=== PATIENT | female | born 1945 | race Two or more races ===

== ENCOUNTER 2017-09-21 11:30 | Outpatient (CLI) | payer OTHER ==
[~2017-09-21 11:30] MED LIST: COZAAR100 MG; DIOVAN HCT 320/1 TAB; GLIPIZIDE10 MG; HYDROCODONE-APA1 CAP; METFORMIN HCL1000 MG; METFORMIN HCL500 MG; METOPROLOL TART25 MG
== END 2017-09-21 11:39 | disposition home or self-care (01) ==
LOC: LAB 11:30
DX: D64.0 Hereditary sideroblastic anemia (principal)

== ENCOUNTER 2017-09-21 14:03 | Outpatient (CLI) | payer OTHER | END 2017-09-21 14:23 | disposition home or self-care (01) | LOC: TOM 14:03 | DX: I10 Essential (primary) hypertension (principal); J44.9 Chronic obstructive pulmonary disease, unspecified; R07.89 Other chest pain ==

== ENCOUNTER 2018-02-13 11:28 | Inpatient (IN) | payer OTHER ==
[~2018-02-13] VITALS: Ht 12.7 cm; Wt 74.8 kg
== END 2018-02-16 20:26 | disposition home or self-care (01) | DRG 379 ==
LOC: MEDJ 11:28
PROC: 30233N1 Transfusion of Nonautologous Red Blood Cells into Peripheral Vein, Percutaneous Approach (ICD-10-PCS; principal; 2018-02-14)
DX: K92.2 Gastrointestinal hemorrhage, unspecified (principal); D50.0 Iron deficiency anemia secondary to blood loss (chronic); I10 Essential (primary) hypertension; E11.9 Type 2 diabetes mellitus without complications

== ENCOUNTER 2018-09-22 11:09 | Outpatient (CLI) | payer OTHER | END 2018-09-22 11:29 | disposition home or self-care (01) | LOC: RAD 11:09 | DX: J44.9 Chronic obstructive pulmonary disease, unspecified (principal) ==

== ENCOUNTER 2019-02-01 06:45 | Day surgery (SDC) | payer OTHER | END 2019-02-01 12:40 | disposition home or self-care (01) | LOC: CIR.AMB 06:45 | DX: L72.0 Epidermal cyst (principal) ==

== ENCOUNTER → 2020-09-08 | Outpatient (CLI) | payer OTHER | END | disposition home or self-care (01) | LOC: MRI 10:59 | PROVIDERS: ATTEND Internal Medicine Cardiovascular Disease | DX: M48.07 Spinal stenosis, lumbosacral region (principal); M46.47 Discitis, unspecified, lumbosacral region | CPT/HCPCS: 72148 ==

== ENCOUNTER 2020-12-30 00:21 | Emergency (ER) | payer OTHER ==
[~2020-12-30] VITALS: Ht 157.5 cm; Wt 69.4 kg
[2020-12-30] MEDS ORDERED: LIPITOR20 MG (00:37)
[2020-12-30] MEDS ORDERED: RENAL VITAMIN0.8 MG (00:38)
[2020-12-30] MEDS ORDERED: NORVASC5 MG (00:38)
[2020-12-30] MEDS ORDERED: AVAPRO75 MG (00:38)
[2020-12-30] MEDS ORDERED: ROCALTROL0.25 MCG (00:39)
== END 2020-12-30 02:20 | disposition home or self-care (01) ==
LOC: ER 00:21
DX: M54.5 Low back pain (principal)

== ENCOUNTER 2021-01-02 02:26 | Emergency (ER) | payer OTHER ==
[~2021-01-02] VITALS: Ht 157.5 cm; Wt 69.4 kg
[~2021-01-02 02:26] MED LIST changes: +AVAPRO75 MG; +LIPITOR20 MG; +NORVASC5 MG; +RENAL VITAMIN0.8 MG; +ROCALTROL0.25 MCG
[2021-01-02] MEDS ORDERED: ACETAMINOPHEN650 M2 PO (06:38)
== END 2021-01-02 06:56 | disposition home or self-care (01) ==
LOC: ER 02:26
DX: M54.5 Low back pain (principal); M79.605 Pain in left leg

== ENCOUNTER 2021-08-28 00:46 | Emergency (ER) | payer OTHER ==
[~2021-08-28] VITALS: Ht 157.5 cm; Wt 74.8 kg
[~2021-08-28 00:46] MED LIST changes: +ACETAMINOPHEN650 M2 PO; -AVAPRO75 MG; +AVAPRO75 MG PO
[2021-08-28] MEDS ORDERED: TOPROL XL200 MG PO (01:03)
[2021-08-28] MEDS ORDERED: DOLOGESIC 500-1 EACH PO (05:39)
== END 2021-08-28 05:46 ==
LOC: ER 00:46
DX: M51.36 Other intervertebral disc degeneration, lumbar region (principal); M54.9 Dorsalgia, unspecified; I10 Essential (primary) hypertension; E11.9 Type 2 diabetes mellitus without complications; Z79.84 Long term (current) use of oral hypoglycemic drugs; Z88.0 Allergy status to penicillin

== ENCOUNTER 2021-08-29 00:28 | Inpatient (IN) | payer OTHER ==
[~2021-08-29] VITALS: Ht 157.5 cm; Wt 74.8 kg
[~2021-08-29 00:28] MED LIST changes: +DOLOGESIC 500-1 EACH PO; +TOPROL XL200 MG PO
== END 2021-09-18 18:44 | disposition home or self-care (01) | DRG 682 ==
LOC: ER 00:28 → MEDI 15:30 → MEDJ 09-09 11:03
PROVIDERS: ADMIT Internal Medicine; ATTEND Internal Medicine
PROC: 0DBH8ZZ Excision of Cecum, Via Natural or Artificial Opening Endoscopic (ICD-10-PCS; principal; 2021-09-02)
PROC: 05HM33Z Insertion of Infusion Device into Right Internal Jugular Vein, Percutaneous Approach (ICD-10-PCS; 2021-09-08)
PROC: 5A1D70Z Performance of Urinary Filtration, Intermittent, Less than 6 Hours Per Day (ICD-10-PCS; 2021-09-09)
PROC: 5A1D70Z Performance of Urinary Filtration, Intermittent, Less than 6 Hours Per Day (ICD-10-PCS; 2021-09-11)
PROC: 5A1D70Z Performance of Urinary Filtration, Intermittent, Less than 6 Hours Per Day (ICD-10-PCS; 2021-09-16)
PROC: 5A1D70Z Performance of Urinary Filtration, Intermittent, Less than 6 Hours Per Day (ICD-10-PCS; 2021-09-18)
DX: I12.0 Hypertensive chronic kidney disease with stage 5 chronic kidney disease or end stage renal disease (principal); N18.6 End stage renal disease; K62.5 Hemorrhage of anus and rectum; N17.8 Other acute kidney failure; K57.30 Diverticulosis of large intestine without perforation or abscess without bleeding; D12.0 Benign neoplasm of cecum; Z79.4 Long term (current) use of insulin; E78.49 Other hyperlipidemia; M54.59 Other low back pain; M51.36 Other intervertebral disc degeneration, lumbar region; Z99.2 Dependence on renal dialysis; Z20.822 Contact with and (suspected) exposure to COVID-19; E11.22 Type 2 diabetes mellitus with diabetic chronic kidney disease; D63.1 Anemia in chronic kidney disease

== ENCOUNTER 2023-02-15 06:23 | Day surgery (SDC) | payer OTHER ==
[~2023-02-15] VITALS: Ht 157.5 cm; Wt 73.5 kg
[~2023-02-15 06:23] MED LIST changes: +CARDURA XL8 MG; +HORIZANT300 MG; +HYDRALAZINE HCL50 MG; +LASIX20 MG
== END 2023-02-15 16:50 | disposition home or self-care (01) ==
LOC: CIR.AMB 06:23
PROVIDERS: ATTEND Specialist
DX: C50.811 Malignant neoplasm of overlapping sites of right female breast (principal); N60.21 Fibroadenosis of right breast; Z20.822 Contact with and (suspected) exposure to COVID-19; E11.9 Type 2 diabetes mellitus without complications; I10 Essential (primary) hypertension
CPT/HCPCS: 19301; 19281; L8699

== ENCOUNTER → 2023-08-15 | Outpatient (CLI) | payer OTHER | END | disposition home or self-care (01) | LOC: TOM 07:29 | PROVIDERS: ATTEND Internal Medicine Gastroenterology | DX: K92.1 Melena (principal); D64.9 Anemia, unspecified ==

== ENCOUNTER 2024-10-04 13:10 | Inpatient (IN) | payer OTHER ==
[~2024-10-04] VITALS: Ht 157.5 cm; Wt 66.2 kg
[2024-10-04] MEDS ORDERED: TRAMADOL HCL 50 MG TABLET PO ONE (14:15)
[2024-10-04 15:49] LABS: HEMATOCRIT 35.7 % (36.0-45.00); HEMOGLOBIN 11.3 g/dL (12.0-15.00); MEAN CELL VOLUME 94.6 fL (80.00-100.00); MEAN CORPUSCULAR HEMOGLOBIN 29.8 pg (27.00-32.0); MEAN CORPUSCULAR HGB CONC 31.6 g/dl (32.0-36.0); PLATELET COUNT 193 K/uL (150-450); RED BLOOD COUNT 3.77 M/uL (4.00-6.00); RED CELL DISTRIBUTION WIDTH 18.1 % (11.5-14.5)
[2024-10-04 16:12] LABS: ALBUMIN 3.4 gm/dL (3.4-5.0); BILIRUBIN TOTAL 0.52 mg/dL (0.3-1.2); CALCIUM 8.9 mg/dL (8.5-10.1); GFR 10.13; GLOBULINA 4.1 G/DL (2.4-3.5); POTASSIUM 4.49 mEq/L (3.5-5.1); TOTAL PROTEIN 7.5 gm/dL (6.4-8.2)
[2024-10-04 16:32] LABS: CREATININE SERUM 4.23 mg/dL (0.55-1.02)
[2024-10-04 16:39] LABS: INR 1.01; PARTIAL THROMBOPLASTIN TIME 31.4 SECONDS (22.0-34.0)
[2024-10-04 16:49] LABS: PH,URINE 7.5 (5.0-8.0); URINE APPEARANCE Error; URINE BILIRRUBIN Negative (NEGATIVE); URINE BLOOD Negative; URINE COLOR Yellow; URINE GLUCOSE Negative (NEGATIVE); URINE KETONE Negative (NEGATIVE); URINE LEUKOCYTE Trace; URINE NITRATE Negative; URINE PROTEIN >=1000 (NEGATIVE); URINE UROBILINOGEN 0.2 E.U./dl
[2024-10-04 16:53] LABS: URINE BACTERIA 6817.6 uL (0.0-1933); URINE CAST 6.03 uL (0.0-1.40); URINE EPITHELIAL CELLS 152.9 uL (0.0-38.8); URINE RBC 17.6 uL (0.0-20.8); URINE WBC 27.7 uL (0.0-23.2)
[2024-10-04] MEDS ORDERED: IPRATROPIUM BROMIDE 0.5 MG/2.5 ML AMPUL.NEB IH SCH (21:18)
[2024-10-04] MEDS ORDERED: ACETAMINOPHEN 500 MG GEL..CAP PO PRN (21:30)
[2024-10-04] MEDS ORDERED: ORPHENADRINE CITRATE 30 MG/ML AMPUL IM ONE (21:30)
[2024-10-04] MEDS ORDERED: NITROGLYCERIN IN 5 % DEXTROSE 250 ML IV SCH (21:30)
[2024-10-04] MEDS ORDERED: ORPHENADRINE CITRATE 30 MG/ML AMPUL IM STA (22:21)
[2024-10-04] MEDS ORDERED: MORPHINE SULFATE 2 MG/ML SYRINGE IV STA (22:21)
[2024-10-05] VITALS (22 sets, daily range): BP systolic 122–198; BP diastolic 66–101; O2SAT 96–100
[2024-10-05] MEDS ORDERED: FUROsemide 20 MG/2 ML VIAL IV SCH (01:00)
[2024-10-05] MEDS ORDERED: NITROGLYCERIN IN 5 % DEXTROSE 50 MG/250 ML BOTTLE IV ONE (01:34)
[2024-10-05] MEDS ORDERED: ACETAMINOPHEN 500 MG GEL..CAP PO ONE (01:34)
[2024-10-05] MEDS ORDERED: FUROsemide 20 MG/2 ML VIAL ONE (01:34)
[2024-10-05] MEDS ORDERED: IPRATROPIUM BROMIDE 0.5 MG/2.5 ML AMPUL.NEB IH ONE ×2 (02:28→09:03)
[2024-10-05] MEDS ORDERED: ENOXAPARIN SODIUM 30 MG/0.3 ML SYRINGE SUBCUTANEO SCH (09:00)
[2024-10-05] MEDS ORDERED: FAMOTIDINE/PF 20 MG in 0.9 % SODIUM CHLORIDE 8 ML IV PUSH SCH (09:00)
[2024-10-05] MEDS ORDERED: GABAPENTIN 400 MG CAPSULE PO SCH (09:00)
[2024-10-05] MEDS ORDERED: ATORVASTATIN CALCIUM 20 MG TABLET PO SCH (09:00)
[2024-10-05] MEDS ORDERED: LOSARTAN POTASSIUM 100 MG TABLET PO SCH (10:41)
[2024-10-05] MEDS ORDERED: CARVEDILOL 12.5 MG TABLET PO SCH (10:42)
[2024-10-05] MEDS ORDERED: DOXAZOSIN MESYLATE 4 MG TABLET PO SCH (10:42)
[2024-10-05] MEDS ORDERED: NITROGLYCERIN IN 5 % DEXTROSE 250 ML IV SCH (16:45)
[2024-10-06] VITALS (21 sets, daily range): BP systolic 100–177; BP diastolic 66–106; O2SAT 98–100
[2024-10-06] MEDS ORDERED: CLOPIDOGREL BISULFATE 75 MG TABLET PO NR (16:00)
[2024-10-06] MEDS ORDERED: ASPIRIN 81 MG TABLET.EC PO NR (16:00)
[2024-10-06] MEDS ORDERED: hydrALAZINE HCL 25 MG TABLET PO SCH (21:00)
[2024-10-07] VITALS (7 sets, daily range): BP systolic 142–185; BP diastolic 63–84; O2SAT 96–100
[2024-10-07] MEDS ORDERED: ASPIRIN 81 MG TABLET.EC PO SCH (09:00)
[2024-10-07] MEDS ORDERED: CLOPIDOGREL BISULFATE 75 MG TABLET PO SCH (09:00)
[2024-10-07] MEDS ORDERED: hydrALAZINE HCL 50 MG TABLET PO SCH (13:00)
[2024-10-08 04:00] VITALS: BP 129/49; O2SAT 97
[2024-10-08 07:10] LABS: ALBUMIN 3.1 gm/dL (3.4-5.0); BILIRUBIN TOTAL 0.38 mg/dL (0.3-1.2); CALCIUM 9.4 mg/dL (8.5-10.1); GLOBULINA 3.7 G/DL (2.4-3.5); PHOSPHOROUS 5.8 mg/dL (2.5-4.9); POTASSIUM 4.82 mEq/L (3.5-5.1); TOTAL PROTEIN 6.8 gm/dL (6.4-8.2); URIC ACID 3.9 mg/dL (2.5-7.5)
[2024-10-08 07:15] LABS: HEMOGLOBIN 12.2 g/dL (12.0-15.00); MEAN CORPUSCULAR HEMOGLOBIN 30.7 pg (27.00-32.0); MEAN CORPUSCULAR HGB CONC 33.1 g/dl (32.0-36.0); PLATELET COUNT 233 K/uL (150-450); RED BLOOD COUNT 3.98 M/uL (4.00-6.00); RED CELL DISTRIBUTION WIDTH 18.1 % (11.5-14.5)
[2024-10-08 07:16] VITALS: BP 161/73; O2SAT 98
[2024-10-08 07:29] LABS: CREATININE SERUM 7.8 mg/dL (0.55-1.02)
[2024-10-08] MEDS ORDERED: DOXAZOSIN MESYLATE 8 MG TABLET PO SCH (09:00)
[2024-10-08 12:00] VITALS: BP 155/77; O2SAT 100
[2024-10-08 15:30] VITALS: BP 130/51; O2SAT 100
[2024-10-08] MEDS ORDERED: VANCOMYCIN HCL 5 MG/ML REDILUIDO IV ONE (16:00)
[2024-10-08] MEDS ORDERED: LACTOBACILLUS ACIDOPHILUS 1 CAP CAP PO SCH (17:00)
[2024-10-08] MEDS ORDERED: CEFEPIME HCL 1,000 MG VIAL IV SCH (17:00)
[2024-10-08 20:00] VITALS: BP 140/70; O2SAT 100
[2024-10-08 23:03] VITALS: BP 139/64; O2SAT 98
[2024-10-09 04:04] VITALS: BP 108/50; O2SAT 100
[2024-10-09 06:55] LABS: CALCIUM 9.3 mg/dL (8.5-10.1); POTASSIUM 5.09 mEq/L (3.5-5.1)
[2024-10-09 06:58] LABS: CREATININE SERUM 9.58 mg/dL (0.55-1.02); GFR 3.94
[2024-10-09 06:59] LABS: C-REACTIVE PROTEIN 4.18 MG/DL (0.00-0.29)
[2024-10-09 07:28] VITALS: BP 101/55; O2SAT 100
[2024-10-09] MEDS ORDERED: VANCOMYCIN HCL 500 MG VIAL IV SCH ×2 (09:00→21:00)
[2024-10-09 12:00] VITALS: BP 126/70; O2SAT 100
[2024-10-09 15:16] VITALS: BP 137/64; O2SAT 100
[2024-10-09 20:00] VITALS: BP 124/88; O2SAT 92
[2024-10-09 23:17] VITALS: BP 137/79; O2SAT 100
[2024-10-10 04:05] VITALS: BP 118/59; O2SAT 100
[2024-10-10 07:13] VITALS: BP 133/69; O2SAT 100
[2024-10-10] MEDS ORDERED: FAMOtidine 20 MG TABLET PO SCH (09:00)
[2024-10-10 12:00] VITALS: BP 149/73; O2SAT 100
[2024-10-10 17:07] VITALS: O2SAT 100
[2024-10-10 17:23] VITALS: BP 104/68; O2SAT 100
[2024-10-10 21:49] VITALS: O2SAT 99
[2024-10-11] VITALS (9 sets, daily range): BP systolic 116–140; BP diastolic 59–70; O2SAT 94–100
[2024-10-12] VITALS (9 sets, daily range): BP systolic 107–153; BP diastolic 65–74; O2SAT 90–100
[2024-10-12 10:15] LABS: HEMATOCRIT 28.8 % (36.0-45.00); MEAN CELL VOLUME 92.2 fL (80.00-100.00); MEAN CORPUSCULAR HGB CONC 32.1 g/dl (32.0-36.0); PLATELET COUNT 263 K/uL (150-450); RED BLOOD COUNT 3.13 M/uL (4.00-6.00); RED CELL DISTRIBUTION WIDTH 17.8 % (11.5-14.5)
[2024-10-12 10:16] LABS: HEMOGLOBIN 9.3 g/dL (12.0-15.00); MEAN CORPUSCULAR HEMOGLOBIN 29.7 pg (27.00-32.0)
[2024-10-12 10:59] LABS: ALBUMIN 2.9 gm/dL (3.4-5.0); CALCIUM 9.6 mg/dL (8.5-10.1); GFR 5.16; PHOSPHOROUS 4.5 mg/dL (2.5-4.9); POTASSIUM 5.45 mEq/L (3.5-5.1)
[2024-10-12 11:09] LABS: CREATININE SERUM 7.58 mg/dL (0.55-1.02)
[2024-10-12] MEDS ORDERED: OTOVEL 0.3%-0.1 EACH OPHT (15:38)
[2024-10-12] MEDS ORDERED: LIPITOR20 MG PO (15:38)
[2024-10-12] MEDS ORDERED: DOXAZOSIN MESYLA8 MG PO (15:38)
[2024-10-12] MEDS ORDERED: HYDRALAZINE HCL50 MG PO (15:38)
[2024-10-12] MEDS ORDERED: CLOPIDOGREL BIS75 MG PO (15:38)
[2024-10-12] MEDS ORDERED: ST. JOSEPH ASPI81 M2 PO (15:38)
[2024-10-12] MEDS ORDERED: NeuRONTin 400MG CAPS PO (15:38)
[2024-10-12] MEDS ORDERED: CARVEDILOL12.5 MG PO (15:38)
[2024-10-12] MEDS ORDERED: FAMOTIDINE20 MG PO (15:38)
[2024-10-12] MEDS ORDERED: LOSARTAN POTAS100 MG PO (15:38)
== END 2024-10-12 17:55 | disposition home or self-care (01) | DRG 291 ==
LOC: ER 13:11 → ICU-2 21:40 → ICU 10-05 19:18 → MEDJ 10-10 14:36
PROVIDERS: General Practice; Internal Medicine Infectious Disease; Internal Medicine Nephrology; Specialist; ADMIT Internal Medicine; ATTEND Internal Medicine
PROC: BW21ZZZ Computerized Tomography (CT Scan) of Abdomen and Pelvis (ICD-10-PCS; principal; 2024-10-04)
PROC: BB24ZZZ Computerized Tomography (CT Scan) of Bilateral Lungs (ICD-10-PCS; 2024-10-04)
PROC: B246ZZZ Ultrasonography of Right and Left Heart (ICD-10-PCS; 2024-10-04)
PROC: BW28ZZZ Computerized Tomography (CT Scan) of Head (ICD-10-PCS; 2024-10-05)
PROC: B345ZZZ Ultrasonography of Bilateral Common Carotid Arteries (ICD-10-PCS; 2024-10-05)
PROC: 3E0F7GC Introduction of Other Therapeutic Substance into Respiratory Tract, Via Natural or Artificial Opening (ICD-10-PCS; 2024-10-05)
PROC: 5A1D70Z Performance of Urinary Filtration, Intermittent, Less than 6 Hours Per Day (ICD-10-PCS; 2024-10-06)
PROC: 5A1D70Z Performance of Urinary Filtration, Intermittent, Less than 6 Hours Per Day (ICD-10-PCS; 2024-10-06)
PROC: B030ZZZ Magnetic Resonance Imaging (MRI) of Brain (ICD-10-PCS; 2024-10-08)
PROC: CP1Z1ZZ Planar Nuclear Medicine Imaging of Musculoskeletal System, All using Technetium 99m (Tc-99m) (ICD-10-PCS; 2024-10-09)
PROC: 4A12X4Z Monitoring of Cardiac Electrical Activity, External Approach (ICD-10-PCS; 2024-10-10)
PROC: 5A1D70Z Performance of Urinary Filtration, Intermittent, Less than 6 Hours Per Day (ICD-10-PCS; 2024-10-11)
DX: I13.2 Hypertensive heart and chronic kidney disease with heart failure and with stage 5 chronic kidney disease, or end stage renal disease (principal); N18.6 End stage renal disease; J90 Pleural effusion, not elsewhere classified; I31.39 Other pericardial effusion (noninflammatory); I50.9 Heart failure, unspecified; E11.22 Type 2 diabetes mellitus with diabetic chronic kidney disease; Z99.2 Dependence on renal dialysis; Z79.4 Long term (current) use of insulin; R09.02 Hypoxemia; E78.49 Other hyperlipidemia
CPT/HCPCS: 70553

== ENCOUNTER 2024-10-14 01:12 | Inpatient (IN) | payer OTHER ==
[~2024-10-14] VITALS: Ht 157.5 cm; Wt 65.8 kg
[~2024-10-14 01:12] MED LIST changes: +CARVEDILOL12.5 MG PO; +CLOPIDOGREL BIS75 MG PO; +DOXAZOSIN MESYLA8 MG PO; +FAMOTIDINE20 MG PO; +HYDRALAZINE HCL50 MG PO; +LIPITOR20 MG PO; +LOSARTAN POTAS100 MG PO; +NeuRONTin 400MG CAPS PO; +OTOVEL 0.3%-0.1 EACH OPHT; +ST. JOSEPH ASPI81 M2 PO
[2024-10-14 03:15] LABS: ABG PH 7.426 (7.35-7.45); ABG PO2 78.1 mmHg (80-100); ABG pCO2 44.5 mmHg (35-45); BASE EXCESS 3.6 mmol/l; BICARBONATE 28.6 mmol/l (23-25); SaO2 95.9 %
[2024-10-14 03:19] LABS: allen test SATISFACTORY; mode ROOM AIR; o2 21 %; puncture site BRADIAL RIGHT
[2024-10-14 04:29] LABS: PLATELET COUNT 244 K/uL (150-450); RED BLOOD COUNT 2.15 M/uL (4.00-6.00); RED CELL DISTRIBUTION WIDTH 17.7 % (11.5-14.5)
[2024-10-14 04:30] LABS: HEMATOCRIT 19.5 % (36.0-45.00); MEAN CORPUSCULAR HEMOGLOBIN 29.7 pg (27.00-32.0)
[2024-10-14 04:31] LABS: HEMOGLOBIN 6.4 g/dL (12.0-15.00)
[2024-10-14 04:33] LABS: ALBUMIN 2.9 gm/dL (3.4-5.0); BILIRUBIN TOTAL 0.3 mg/dL (0.3-1.2); CALCIUM 9.3 mg/dL (8.5-10.1); GFR 6.31; GLOBULINA 3.3 G/DL (2.4-3.5); POTASSIUM 5.04 mEq/L (3.5-5.1); TOTAL PROTEIN 6.2 gm/dL (6.4-8.2)
[2024-10-14 04:37] LABS: CREATININE SERUM 6.37 mg/dL (0.55-1.02)
[2024-10-14] MEDS ORDERED: NITROGLYCERIN 0.4 MG TAB.SUBL SL STA (08:10)
[2024-10-14] MEDS ORDERED: NITROGLYCERIN IN 5 % DEXTROSE 50 MG/250 ML KIT IV STA (08:11)
[2024-10-14] MEDS ORDERED: NITROGLYCERIN IN 5 % DEXTROSE 50 MG/250 ML BOTTLE IV ONE (08:20)
[2024-10-14] MEDS ORDERED: SOD FERRIC GLUC COMPLX/SUCROSE 62.5 MG in 0.9 % SODIUM CHLORIDE 50 ML IV SCH (12:27)
[2024-10-14] MEDS ORDERED: FAMOtidine 20 MG TABLET PO SCH (12:27)
[2024-10-14] MEDS ORDERED: Cyanocobalamin/Mecobalamin 1 TAB.SL SL SCH (12:28)
[2024-10-14] MEDS ORDERED: IRON FUM,PS/FOLIC/BCOMP,C NO.9 1 CAP CAPSULE PO SCH (12:28)
[2024-10-14] MEDS ORDERED: ISOSORBIDE MONONITRATE 60 MG TABLET PO SCH (12:29)
[2024-10-14] MEDS ORDERED: CARVEDILOL 12.5 MG TABLET PO SCH (12:29)
[2024-10-14] MEDS ORDERED: PANTOPRAZOLE SODIUM 40 MG/VIAL VIAL IV SCH (12:30)
[2024-10-14] MEDS ORDERED: ACETAMINOPHEN 500 MG GEL..CAP PO PRN (12:45)
[2024-10-14] MEDS ORDERED: RENVELA 800 MG PO SCH (13:00)
[2024-10-14] MEDS ORDERED: PANTOPRAZOLE SODIUM 80 MG in 0.9 % SODIUM CHLORIDE 100 ML IV SCH (13:00)
[2024-10-14] MEDS ORDERED: SUCRALFATE 1 G TABLET PO SCH (13:00)
[2024-10-14 14:45] VITALS: BP 132/65; O2SAT 96
[2024-10-14 15:49] VITALS: BP 133/65; O2SAT 97
[2024-10-14] MEDS ORDERED: ATORVASTATIN CALCIUM 40 MG TABLET PO SCH (17:00)
[2024-10-14] MEDS ORDERED: CIPROFLOXACIN 0.2% OT SCH (17:00)
[2024-10-14 18:03] VITALS: BP 130/60
[2024-10-14 19:53] VITALS: O2SAT 97
[2024-10-14] MEDS ORDERED: DOXAZOSIN MESYLATE 2 MG TABLET PO SCH (21:00)
[2024-10-14] MEDS ORDERED: HEPARIN SODIUM,PORCINE 1,000 UNITS/ML VIAL IV SCH (21:45)
[2024-10-14] MEDS ORDERED: HEPARIN SODIUM,PORCINE 1,000 UNITS/ML VIAL SPEPROC ONE (21:45)
[2024-10-15] VITALS (11 sets, daily range): BP systolic 100–125; BP diastolic 55–74; O2SAT 90–100
[2024-10-15 07:15] LABS: PARTIAL THROMBOPLASTIN TIME 23.1 SECONDS (22.0-34.0); PROTHROMBIN TIME 10.9 SECONDS (9.0-11.5)
[2024-10-15 07:25] LABS: MEAN CELL VOLUME 92.2 fL (80.00-100.00); PLATELET COUNT 240 K/uL (150-450); RED BLOOD COUNT 1.66 M/uL (4.00-6.00)
[2024-10-15 07:40] LABS: MEAN CORPUSCULAR HEMOGLOBIN 30.1 pg (27.00-32.0)
[2024-10-15 07:42] LABS: HEMATOCRIT 15.3 % (36.0-45.00)
[2024-10-15 07:56] LABS: ALBUMIN 2.8 gm/dL (3.4-5.0); BILIRUBIN TOTAL 0.25 mg/dL (0.3-1.2); CHOL HDL RATIO 3.6 (0-5.0); GLOBULINA 3.1 G/DL (2.4-3.5); PHOSPHOROUS 4.5 mg/dL (2.5-4.9); POTASSIUM 5.72 mEq/L (3.5-5.1); TOTAL PROTEIN 5.9 gm/dL (6.4-8.2); TSH 2.65 uIU/mL (0.358-3.74)
[2024-10-15 07:58] LABS: ERYTHROCYTE SEDIMENTATION RATE 34 mm/hr
[2024-10-15 08:08] LABS: GFR 4.87
[2024-10-15 08:09] LABS: C-REACTIVE PROTEIN 0.87 MG/DL (0.00-0.29); CREATININE SERUM 7.97 mg/dL (0.55-1.02)
[2024-10-15] MEDS ORDERED: CLOPIDOGREL BISULFATE 75 MG TABLET PO SCH (09:00)
[2024-10-15] MEDS ORDERED: ANASTROZOLE 1 MG PO SCH (09:00)
[2024-10-15] MEDS ORDERED: EPOETIN ALFA-EPBX 10,000 UNIT/ML VIAL (Retacrit) SUBCUTANEO NR (11:00)
[2024-10-15] MEDS ORDERED: VITAMIN B COMPLEX 1 EACH PO NR (11:00)
[2024-10-15 13:14] LABS: FERRITIN 1150.5 NG/ML (8-252)
[2024-10-15 14:00] LABS: FOLIC ACID 6.19 ng/ml (4.78-20)
[2024-10-15] MEDS ORDERED: VITAMIN B COMPLEX 1 EACH PO SCH (17:00)
[2024-10-15] MEDS ORDERED: CLONAZEPAM 0.5 MG TABLET PO PRN (18:00)
[2024-10-15 21:11] LABS: ob POSITIVE (NEGATIVE)
[2024-10-15] MEDS ORDERED: NITROGLYCERIN IN 5 % DEXTROSE 250 ML IV SCH (23:15)
[2024-10-16] VITALS (11 sets, daily range): BP systolic 90–104; BP diastolic 55–64; O2SAT 95–100
[2024-10-16] MEDS ORDERED: RENVELA 800 MG PO SCH (12:00)
[2024-10-17] VITALS (21 sets, daily range): BP systolic 72–130; BP diastolic 33–63; O2SAT 21–100
[2024-10-17] MEDS ORDERED: SOD FERRIC GLUC COMPLX/SUCROSE 62.5 MG/5 ML AMPUL IV ONE (08:01)
[2024-10-17] MEDS ORDERED: NOREPINEPHRINE BITARTRATE 1 MG/ML AMPUL IV ONE (12:27)
[2024-10-17] MEDS ORDERED: EPOETIN ALFA-EPBX 10,000 UNIT/ML VIAL (Retacrit) SUBCUTANEO NR (12:35)
[2024-10-17] MEDS ORDERED: NOREPINEPHRINE BITARTRATE 8 MG in DEXTROSE 5 % IN WATER 250 ML IV SCH (12:45)
[2024-10-17 15:06] LABS: hgb a 97.5 % (96.4-98.8); hgb a2 2.5 % (1.8-3.2); hgb f 0 % (0.0-2.0); hgb s 0 % (0.0)
[2024-10-17] MEDS ORDERED: METHYLPREDNISOLONE SOD SUCC 40 MG VIAL IV SCH (19:30)
[2024-10-17] MEDS ORDERED: DIPHENHYDRAMINE HCL 50 MG/ML VIAL 1ML IV SCH (19:30)
[2024-10-18] MEDS ORDERED: ONDANSETRON HCL 2 MG/ML VIAL IV SCH (01:00)
[2024-10-18] MEDS ORDERED: DOPamine HCL 400MG/D5w 250ML PLAST..BAG IV ONE (01:27)
[2024-10-18] MEDS ORDERED: DOPamine HCL IN DEXTROSE 5 % 250 ML IV SCH (01:50)
[2024-10-18 02:15] LABS: ALBUMIN 3.1 gm/dL (3.4-5.0); BILIRUBIN TOTAL 0.46 mg/dL (0.3-1.2); CALCIUM 9.2 mg/dL (8.5-10.1); GLOBULINA 3.1 G/DL (2.4-3.5); TOTAL PROTEIN 6.2 gm/dL (6.4-8.2)
[2024-10-18 02:18] LABS: GFR 3.19
[2024-10-18 02:19] LABS: CREATININE SERUM 11.5 mg/dL (0.55-1.02)
[2024-10-18 02:20] LABS: POTASSIUM 8.37 mEq/L (3.5-5.1)
[2024-10-18] MEDS ORDERED: EPOETIN ALFA-EPBX 10,000 UNIT/ML VIAL (Retacrit) SUBCUTANEO SCH (09:00)
[2024-10-19] MEDS ORDERED: EPOETIN ALFA-EPBX 10,000 UNIT/ML VIAL (Retacrit) SUBCUTANEO SCH (09:00)
[2024-10-19 19:06] LABS: g6pd quant 165 (127-427); rbc 1.68 x10E6/uL (3.77-5.28)
== END 2024-10-18 12:08 | disposition expired | DRG 811 ==
LOC: ER 01:12 → MEDJ 13:06 → ICU 10-17 05:09
PROVIDERS: Internal Medicine; Internal Medicine Hematology & Oncology; ADMIT Internal Medicine; ATTEND Internal Medicine
PROC: 4A12X4Z Monitoring of Cardiac Electrical Activity, External Approach (ICD-10-PCS; 2024-10-14)
PROC: 8E0ZXY6 Isolation (ICD-10-PCS; 2024-10-14)
PROC: 02HV33Z Insertion of Infusion Device into Superior Vena Cava, Percutaneous Approach (ICD-10-PCS; principal; 2024-10-16)
PROC: 30243N1 Transfusion of Nonautologous Red Blood Cells into Central Vein, Percutaneous Approach (ICD-10-PCS; 2024-10-17)
DX: D64.9 Anemia, unspecified (principal); N18.6 End stage renal disease; Z99.2 Dependence on renal dialysis; E11.9 Type 2 diabetes mellitus without complications; Z79.4 Long term (current) use of insulin; D62 Acute posthemorrhagic anemia; E78.5 Hyperlipidemia, unspecified; H70.93 Unspecified mastoiditis, bilateral; R57.1 Hypovolemic shock; Z66 Do not resuscitate; I46.9 Cardiac arrest, cause unspecified; I25.10 Atherosclerotic heart disease of native coronary artery without angina pectoris; I11.0 Hypertensive heart disease with heart failure; I50.9 Heart failure, unspecified